=== PATIENT | female | born 1975 | race Caucasian/White ===

== ENCOUNTER 2017-10-20 10:07 | Emergency (ER) | payer BC ==
[2017-10-20 10:44] LABS: #Basophils 0.1 thou/uL (0.0-0.2); #Eosinphils 0.2 thou/uL (0.0-0.7); #Monocytes 0.9 thou/uL (0.11-0.59); #Neutrophils 4.8 thou/uL (1.40-6.50); %Basophils 0.6 % (0.0-1.0); %Eosinophils 2.7 % (0.0-10.0); %Lymphocytes 33.4 % (21.0-51.0); %Monocytes 9.9 % (0.0-10.0); Hematocrit 46.1 % (36.0-47.0); Mean Platelet Volume 7.2 fL (7.4-10.4); Red Blood Cell (RBC) Count 4.73 mill/uL (4.20-5.40)
--- NOTE | 2017-10-20 10:44 | RAD ---
PORTABLE CHEST ONE VIEW: Date: 10-20-17 Time: 10:23 a.m. History: Chest pain. FINDINGS: Comparison made with exam of 11-30-16. There is continued elevation of the right hemidiaphragm. The heart size is normal. No focal areas of consolidation, pneumothorax, or pleural effusions are seen. IMPRESSION: No acute process. POS: [facility]
[2017-10-20 10:50] LABS: ALT (SGPT) 19 U/L (8-55); AST (SGOT) 15 U/L (5-34); Alkaline Phosphatase 55 U/L (40-150); Anion Gap 12 mmol/L (10-20); BUN (Urea Nitrogen) 12 mg/dL (7.0-18.7); Bilirubin, Total 0.4 mg/dL (0.2-1.2); CK (CPK) 77 U/L (29-168); Calc. Creatinine Clearance 0 mL/min (70-130); Calcium 9.7 mg/dL (7.8-10.44); Carbon Dioxide 27 mmol/L (22-29); Chloride 103 mmol/L (98-107); Estimated GFR-MDRD Greater than 90; Lipase 34 U/L (8-78); Protein, Total 7.3 g/dL (6.0-8.3)
[2017-10-20 10:54] LABS: Troponin I Less than 0.010 ng/mL (< 0.028)
[2017-10-20 13:46] LABS: Troponin I Less than 0.010 ng/mL (< 0.028)
== END 2017-10-20 14:23 | disposition home or self-care (01) ==
LOC: ERS 10:07
DX: R07.89 Other chest pain (principal); F17.210 Nicotine dependence, cigarettes, uncomplicated; I10 Essential (primary) hypertension; Z87.442 Personal history of urinary calculi; Z79.899 Other long term (current) drug therapy
CPT/HCPCS: 36415; 71010; 80053; 82550; 82553; 83690; 84484; 85025; 93005; 94760

== ENCOUNTER 2018-06-28 08:28 | Outpatient (CLI) | payer OTHER | END 2018-06-28 08:29 | disposition home or self-care (01) | LOC: BICULT 08:28 | PROVIDERS: ATTEND Family Medicine | DX: R10.84 Generalized abdominal pain (principal); Z90.49 Acquired absence of other specified parts of digestive tract; Z90.5 Acquired absence of kidney | CPT/HCPCS: 76700 ==

== ENCOUNTER 2019-01-23 08:30 | Emergency (ER) | payer OTHER ==
[2019-01-23] MEDS ORDERED: Meclizine HCl 25 MG TAB ONE (08:50)
[2019-01-23] MEDS ORDERED: Metoclopramide HCl 10 MG/2 ML VIAL ONE (08:50)
[2019-01-23 09:09] LABS: #Basophils 0.2 thou/uL (0.0-0.2); #Eosinphils 0.2 thou/uL (0.0-0.7); #Lymphocytes 2.9 thou/uL (1.20-3.40); #Monocytes 0.7 thou/uL (0.11-0.59); #Neutrophils 5.4 thou/uL (1.40-6.50); %Basophils 1.6 % (0.0-1.0); %Eosinophils 1.8 % (0.0-10.0); %Lymphocytes 31.5 % (21.0-51.0); %Monocytes 7.3 % (0.0-10.0); %Neutrophils 57.8 % (42.0-75.0); Hemoglobin 15.1 g/dL (12.0-16.0); Mean Corpuscular HGB CONC 33.2 g/dL (32.0-36.0); Mean Corpuscular Hemoglobin 31.2 pg (27.0-31.0); Mean Corpuscular Volume 93.9 fL (78.0-98.0); Platelet Count 268 thou/uL (130-400); Red Blood Cell (RBC) Count 4.83 mill/uL (4.20-5.40); White Blood Cell (WBC) Count 9.4 thou/uL (4.8-10.8)
[2019-01-23 09:21] LABS: BHCG - Serum Negative (NEGATIVE); Pregs Control Background? CLEAR/WHITE (CLR/WHITE); Pregs Control Bar Appear? YES (CONTROL BAR)
[2019-01-23 09:23] LABS: ALT (SGPT) 19 U/L (8-55); AST (SGOT) 18 U/L (5-34); Albumin 4.2 g/dL (3.5-5.0); Alkaline Phosphatase 56 U/L (40-150); Anion Gap 13 mmol/L (10-20); BUN (Urea Nitrogen) 10 mg/dL (7.0-18.7); Bilirubin, Total 0.4 mg/dL (0.2-1.2); Calc. Creatinine Clearance 0 mL/min (70-130); Calcium 9.2 mg/dL (7.8-10.44); Carbon Dioxide 22 mmol/L (22-29); Chloride 108 mmol/L (98-107); Estimated GFR-MDRD Greater than 90; Globulin 2.9 g/dL (2.4-3.5); Glucose 96 mg/dL (70-105); Protein, Total 7.1 g/dL (6.0-8.3); Sodium 139 mmol/L (136-145)
--- NOTE | 2019-01-23 09:40 | CT ---
Head CT without contrast: 01/23/2019 COMPARISON: None HISTORY: Headache TECHNIQUE: Axial CT imaging at 4.8 mm intervals from vertex through skull base without contrast. FINDINGS: The visualized paranasal sinuses and mastoid air cells are well aerated. No displaced frederic rial fracture. No intracranial hemorrhage, midline shift, mass effect, or ventricular enlargement. IMPRESSION: No acute findings.
[2019-01-23] MEDS ORDERED: Ketorolac Tromethamine 30 MG/ML VIAL ONE (09:49)
== END 2019-01-23 10:43 | disposition home or self-care (01) ==
LOC: SCSER 08:30
DX: H81.391 Other peripheral vertigo, right ear (principal); I10 Essential (primary) hypertension; F17.210 Nicotine dependence, cigarettes, uncomplicated; Z79.899 Other long term (current) drug therapy
CPT/HCPCS: 70450; 80053; 84703; 85025; 93005; 96365; 96366; 96375; J1885; J2765

== ENCOUNTER 2019-01-26 10:17 | Outpatient (CLI) | payer OTHER ==
--- NOTE | 2019-01-26 13:11 | MRI ---
FCervical spine MRI without contrast: 01/26/2019 COMPARISON: 07/27/2017 HISTORY: Cervical radiculopathy TECHNIQUE: Multiplanar multisequence MR imaging of cervical spine obtained without contrast FINDINGS: Stable degenerative endplate changes are seen at the C5-6 level. There is no anterolisthesi s or retrolisthesis noted. The sagittal STIR imaging demonstrates no acute focal area of osseous roger ow edema. C2-3: Intervertebral disc height and signal intensity within normal limits with no significant centra l canal or neural foraminal stenosis. C3-4: Intervertebral disc height and signal intensity within normal limits with no central canal or n eural foraminal stenosis C4-5: Stable disc space narrowing, disc space narrowing, and disc bulge with mild effacement of the v entral thecal sac and mild central canal stenosis. Stable central annular tear. Mild right neural for aminal stenosis on the basis of uncovertebral osteophyte formation. C5-6: Degenerative endplate changes noted with disc desiccation and anterior osteophyte formation. Ef facement of the ventral thecal sac noted with mild stable central canal stenosis. Bilateral facet and uncovertebral osteophyte formation noted with mild right and moderate left neural foraminal stenosis . C6-7: No significant central canal or neural foraminal stenosis C7-T1: No significant central canal or neural foraminal stenosis. No focal area of abnormal signal intensity is identified within the cervical cord. IMPRESSION: No significant interval change in cervical spine degenerative disc disease as detailed ab ove.
== END 2019-01-26 10:18 | disposition home or self-care (01) ==
LOC: SCSMRI 10:17
PROVIDERS: ATTEND Specialist
DX: M54.12 Radiculopathy, cervical region (principal)
CPT/HCPCS: 72141

== ENCOUNTER 2019-02-21 11:37 | Outpatient (CLI) | payer OTHER ==
--- NOTE | 2019-02-22 07:28 | RAD ---
Left hip 2 views HISTORY: Left hip pain. FINDINGS: Mild joint space narrowing, osteophytosis, and subchondral sclerosis. Femoral head contours maintained. No acute fracture, dislocation, or aggressive osseous erosions. IMPRESSION: Osteoarthritic changes left hip are pronounced for the patient's age.
== END 2019-02-21 11:38 | disposition home or self-care (01) ==
LOC: RAD 11:37
PROVIDERS: ATTEND Nurse Practitioner Family
DX: M25.552 Pain in left hip (principal); M16.12 Unilateral primary osteoarthritis, left hip

== ENCOUNTER 2019-02-26 09:45 | Outpatient (CLI) | payer OTHER | END 2019-02-26 09:46 | disposition home or self-care (01) | LOC: CTENTCT 09:45 | PROVIDERS: ATTEND Otolaryngology Plastic Surgery within the Head & Neck | DX: J32.9 Chronic sinusitis, unspecified (principal) | CPT/HCPCS: 70486 ==

== ENCOUNTER 2019-03-03 18:41 | Emergency (ER) | payer OTHER ==
--- NOTE | 2019-03-03 19:23 | RAD ---
4 views left elbow: 03/03/2019 COMPARISON: None HISTORY: Joint pain, decreased range of motion FINDINGS: No fracture or dislocation. No elbow joint effusion. No radiopaque foreign body or subcutan eous gas. IMPRESSION: No acute findings.
== END 2019-03-03 20:00 | disposition home or self-care (01) ==
LOC: SCSER 18:41
DX: S50.02XA Contusion of left elbow, initial encounter (principal); L50.9 Urticaria, unspecified; I10 Essential (primary) hypertension; F17.210 Nicotine dependence, cigarettes, uncomplicated; Z87.442 Personal history of urinary calculi; Z71.6 Tobacco abuse counseling; W18.30XA Fall on same level, unspecified, initial encounter
CPT/HCPCS: 29125; 99406

== ENCOUNTER 2019-03-28 08:13 | Day surgery (SDC) | payer OTHER ==
[2019-03-27 09:33] VITALS: BMI 37.8
[2019-03-28] MEDS ORDERED: Oxymetazoline HCl 0.05% ( 15 ML ) ONE ×2 (08:48→10:33)
[2019-03-28] MEDS ORDERED: Ondansetron PF 4 MG/2 ML Vial ONE ×2 (09:16→13:03)
[2019-03-28] MEDS ORDERED: Scopolamine 1.5 mg/72 hour Patch ONE (09:16)
[2019-03-28] MEDS ORDERED: Bacitracin Zinc Ointment 30 gm TUBE ONE (10:32)
[2019-03-28] MEDS ORDERED: Lidocaine 1% w/Epinephrine 1:100K 20 ML VIAL ONE (10:32)
[2019-03-28] MEDS ORDERED: Midazolam HCl 2 mg/2 ml Vial ONE (10:37)
[2019-03-28] MEDS ORDERED: Fentanyl 100 MCG/2 ML VIAL ONE ×4 (10:37→12:10)
[2019-03-28] MEDS ORDERED: Labetalol HCl 100 MG/20 ML VIAL ONE ×2 (12:21→14:07)
[2019-03-28 12:33] LABS: Ref Lab Test Ordered ALLERGEN LOBSTER; Reference Lab Name LABCORP
[2019-03-28] MEDS ORDERED: Lidocaine 1% PF 5 ML VIAL ONE (13:03)
[2019-03-28] MEDS ORDERED: PROPOFOL 200 MG/20 ML VIAL ONE (13:03)
[2019-03-28] MEDS ORDERED: Succinylcholine Chloride 20 MG/ML 10 ml SYRINGE FS ONE (13:03)
[2019-03-28] MEDS ORDERED: Dexamethasone 20 MG/5 ML VIAL ONE (13:03)
[2019-03-28] MEDS ORDERED: hydrALAZINE 20 MG/ML VIAL ONE (13:29)
[2019-03-28] MEDS ORDERED: Morphine 2 MG/ML SYRINGE ONE ×2 (14:22→14:49)
[2019-03-28] MEDS ORDERED: Hydrocodone-Acetamin 15 ML UDCUP ONE (15:03)
--- NOTE | 2019-03-29 11:34 | OP ---
DATE OF PROCEDURE: 03/28/2019 PREOPERATIVE DIAGNOSES: 1. Chronic rhinosinusitis. 2. Nasoseptal deviation. 3. Bilateral inferior turbinate hypertrophy. 4. Chronic adenotonsillitis.. 5. Adenotonsillar hypertrophy. 6. Obstructive sleep apnea. POSTOPERATIVE DIAGNOSES: 1. Chronic rhinosinusitis. 2. Nasoseptal deviation. 3. Bilateral inferior turbinate hypertrophy. 4. Chronic adenotonsillitis.. 5. Adenotonsillar hypertrophy. 6. Obstructive sleep apnea. PROCEDURES PERFORMED: 1. Bilateral endoscopic sinus surgery, total ethmoidectomies. 2. Bilateral endoscopic sinus surgery, maxillary antrostomies. 3. Bilateral endoscopic sinus surgery, frontal sinusotomies. 4. Nasal septoplasty. 5. Bilateral inferior turbinate submucosal resection. 6. Tonsillectomy and adenoidectomy. ESTIMATED BLOOD LOSS: 50 mL. COMPLICATIONS: None. ANESTHESIA: GETA. DESCRIPTION OF PROCEDURE: After consent was obtained, the patient was identified, brought to the operating room, and placed on the operating table in the supine position. General endotracheal anesthesia and intravenous access were obtained and we proceeded with positioning the patient for oropharyngeal surgery. Oropharyngeal exposure was obtained with a Maryam-Bryson mouth gag after a head drape was placed and secured with a towel clip. The Maryam-Bryson mouth gag was then suspended from the Small tray and palatal elevation was achieved with a red rubber catheter. The right tonsil was addressed first. We used a curved Allis to grasp the tonsil and retract it medially as an anterior pillar incision was made. The retrotonsillar fascial plane was then established and blunt dissection was performed with the suction cautery. Blood vessels were anticipated, identified, and cauterized as they were encountered. Ultimately, dissection was carried to the posterior tonsillar pillar mucosa which was incised hemostatically, as well as the base of tongue connection. The tonsil was then passed off as a specimen and bleeding points within the tonsillar bed were cauterized under direct visualization. We subsequently turned our attention to the contralateral side, where using a similar technique, a near identical procedure was performed. Again, the tonsil was grasped and retracted medially with a curved Allis. The retrotonsillar fascial plane was established and while the anterior pillar was retracted medially. The hemostatic blunt dissection of the tonsil with a suction cautery was performed with blood vessels anticipated, identified, and cauterized as they were encountered. Again, dissection continued to the base of tongue and posterior tonsillar pillar mucosa which was incised in a hemostatic fashion. The tonsillar beds were then carefully inspected and bleeding points were identified and cauterized with a suction cautery. After this portion of the procedure, hemostasis was completely obtained. Under direct mirror visualization, we visualized the adenoid pad. Under direct mirror visualization, we removed the bulk of the adenoid tissue with the adenoid curette. We then packed the nasopharynx for an appropriate period of time with Iiu-[id number]-tzsursxcs tonsillar sponges. After a period of observation, we removed the pack. Under indirect mirror visualization, we obtained hemostasis and vaporization of residual adenoid tissue with electrocautery. The patient's oral cavity was copiously irrigated with iced saline and subsequently suctioned. After completion of the procedure, the nasal cavity and oropharynx were irrigated and suctioned as were the gastric contents. The patient was then awakened and transferred to the recovery room where the patient remained in stable condition prior to discharge to Day Stay. The patient was taken to the operating room and placed supine on the table. General endotracheal anesthesia was obtained by the anesthesia staff. Tube was secured in the left lower lip. Patient was then placed in the beach chair position, and Afrin pledgets were placed in the nasal cavity. Injections of 1% lidocaine with 1:100,000 epinephrine were made into the nasal septum as well as the inferior turbinates. Patient was then prepped and draped in standard surgical fashion for nasal surgery. Following this, the Afrin pledgets were removed. A Casa incision was made on the left nasal septum. Submucoperichondrial dissection was performed. The deviated portions of the septum included portions of the cartilage and the bony septum. These isolated areas were removed using 3 cutting rongeurs. There was noted to be a large dorsal and caudal strut, left intact for support of the nose. The mucoperichondrial flaps were then reapproximated using a 4-0 gut stitch. Any straight pieces of cartilage were crushed prior to this and placed between the mucoperichondrial flaps. Following this, the inferior turbinates were then punctured with a submucosal coblation wand, and submucosal coblations were performed of multiple areas of the inferior portion of the anterior inferior turbinate. A submucosal microdebrider was used to submucosally resect the anterior and inferior portions of the inferior turbinates bilaterally. Following this, the 0-degree endoscope was advanced in the middle meatus. The middle turbinates were gently medialized using a [place] elevator and the uncinate process was exposed. Following this, the uncinate process was then anteriorly fractured using a ball-ended probe and then was removed using the 0-degree microdebrider and the up-biting Blakesley forceps bilaterally. Following this, the maxillary sinus ostia was gently identified using the ball-ended probe and the maxillary sinus ostia was then widened using the 40-degree microdebrider blade and straight Blakesley forceps bilaterally. Following this, the ethmoidal bulla was identified and was punctured on its medial and inferior aspect with microdebrider and was removed using the microdebrider and the up-biting Blakesley forceps. Following this, the grand lamella was identified and was punctured into the posterior ethmoidal cells. Working from posterior to anterior, the ethmoidal cells were opened using the 0-degree microdebrider and up-biting Blakesley forceps. Following this, a 45-degree endoscope and the 40-degree microdebrider were used to further open the anterior ethmoidal cells as well as open and expose the frontal sinus ostia bilaterally. Following this, the nasal cavity was irrigated. Mirapex was placed within the middle meatus. Alfaro splints were placed and secured. The patient tolerated the procedure well. Job ID: [id number]
[2019-03-30 17:30] LABS: Allergen,Alternaria altern.IgE Less than 0.10 kU/L (Less than 0.10); Allergen,Ash white IgE Less than 0.10 kU/L (Less than 0.10); Allergen,Aspergillus fumig.IgE Less than 0.10 kU/L (Less than 0.10); Allergen,Bermuda grass IgE Less than 0.10 kU/L (Less than 0.10); Allergen,Cat dander IgE Less than 0.10 kU/L (Less than 0.10); Allergen,Cedar mountain IgE Less than 0.10 kU/L (Less than 0.10); Allergen,Chocolate/Cacao IgE Less than 0.10 kU/L (Less than 0.10); Allergen,Cladosporium herb.IgE Less than 0.10 kU/L (Less than 0.10); Allergen,Corn IgE Less than 0.10 kU/L (Less than 0.10); Allergen,Cottonwood Tree IgE Less than 0.10 kU/L (Less than 0.10); Allergen,Crab IgE Less than 0.10 kU/L (Less than 0.10); Allergen,Curvularia lunata IgE Less than 0.10 kU/L (Less than 0.10); Allergen,D. pteronyssinus IgE Less than 0.10 kU/L (Less than 0.10); Allergen,Dog dander IgE Less than 0.10 kU/L (Less than 0.10); Allergen,Egg white IgE Less than 0.10 kU/L (Less than 0.10); Allergen,Egg yolk IgE Less than 0.10 kU/L (Less than 0.10); Allergen,Elm AmericanWhite IgE Less than 0.10 kU/L (Less than 0.10); Allergen,Johnson grass IgE Less than 0.10 kU/L (Less than 0.10); Allergen,Lamb's qrters Gooseft Less than 0.10 kU/L (Less than 0.10); Allergen,Mesquite IgE Less than 0.10 kU/L (Less than 0.10); Allergen,Milk IgE Less than 0.10 kU/L (Less than 0.10); Allergen,Oat IgE Less than 0.10 kU/L (Less than 0.10); Allergen,Peanut IgE Less than 0.10 kU/L (Less than 0.10); Allergen,Pecan nut IgE Less than 0.10 kU/L (Less than 0.10); Allergen,Pecan/Hickory IgE Less than 0.10 kU/L (Less than 0.10); Allergen,Plantain English IgE Less than 0.10 kU/L (Less than 0.10); Allergen,Ragweed giant IgE Less than 0.10 kU/L (Less than 0.10); Allergen,Rice IgE Less than 0.10 kU/L (Less than 0.10); Allergen,Saltwort RussianThist Less than 0.10 kU/L (Less than 0.10); Allergen,Shrimp IgE Less than 0.10 kU/L (Less than 0.10); Allergen,Soybean IgE Less than 0.10 kU/L (Less than 0.10); Allergen,Sycamore Maple Lf IgE Less than 0.10 kU/L (Less than 0.10); Allergen,Timothy grass IgE Less than 0.10 kU/L (Less than 0.10); Allergen,Wheat IgE Less than 0.10 kU/L (Less than 0.10); Allergen,Wormwood IgE Less than 0.10 kU/L (Less than 0.10)
== END 2019-03-28 16:00 | disposition home or self-care (01) ==
LOC: SDC 08:13
PROVIDERS: ATTEND Otolaryngology Plastic Surgery within the Head & Neck
PROC: 09TL8ZZ Resection of Nasal Turbinate, Via Natural or Artificial Opening Endoscopic (ICD-10-PCS; principal; 2019-03-28)
PROC: 0CTQXZZ Resection of Adenoids, External Approach (ICD-10-PCS; principal; 2019-03-28)
PROC: 099R8ZZ Drainage of Left Maxillary Sinus, Via Natural or Artificial Opening Endoscopic (ICD-10-PCS; principal; 2019-03-28)
PROC: 09BM8ZZ Excision of Nasal Septum, Via Natural or Artificial Opening Endoscopic (ICD-10-PCS; principal; 2019-03-28)
PROC: 099Q8ZZ Drainage of Right Maxillary Sinus, Via Natural or Artificial Opening Endoscopic (ICD-10-PCS; principal; 2019-03-28)
PROC: 0CTPXZZ Resection of Tonsils, External Approach (ICD-10-PCS; principal; 2019-03-28)
DX: J35.03 Chronic tonsillitis and adenoiditis (principal); G47.33 Obstructive sleep apnea (adult) (pediatric); J32.9 Chronic sinusitis, unspecified; J34.2 Deviated nasal septum; J34.3 Hypertrophy of nasal turbinates; H92.02 Otalgia, left ear; F17.210 Nicotine dependence, cigarettes, uncomplicated; K21.9 Gastro-esophageal reflux disease without esophagitis; Z79.51 Long term (current) use of inhaled steroids
CPT/HCPCS: 36415; 85014; 88304; J0360; J1100; J2001; J2250; J2270; J2405; J2704; J3010

== ENCOUNTER 2019-03-31 17:17 | Emergency (ER) | payer OTHER ==
[2019-03-31] MEDS ORDERED: Morphine 4 MG/ML VIAL ONE (17:53)
[2019-03-31] MEDS ORDERED: Ondansetron ODT 4 MG TAB ONE (17:53)
[2019-03-31] MEDS ORDERED: Dexamethasone 4 mg/ml Vial ONE (18:17)
== END 2019-03-31 19:00 | disposition home or self-care (01) ==
LOC: ERS 17:17
DX: G89.18 Other acute postprocedural pain (principal); R51 Headache; F17.210 Nicotine dependence, cigarettes, uncomplicated; I10 Essential (primary) hypertension
CPT/HCPCS: 96372; J1100; J2270; Q0162

== ENCOUNTER 2019-04-04 05:23 | Emergency (ER) | payer OTHER ==
[2019-04-04] MEDS ORDERED: Ondansetron PF 4 MG/2 ML Vial ONE (06:00)
[2019-04-04] MEDS ORDERED: Morphine 4 MG/ML VIAL ONE (06:00)
[2019-04-04 06:18] LABS: #Basophils 0.1 thou/uL (0.0-0.2); #Eosinphils 0.2 thou/uL (0.0-0.7); #Lymphocytes 3.1 thou/uL (1.20-3.40); #Monocytes 1.9 thou/uL (0.11-0.59); #Neutrophils 9.7 thou/uL (1.40-6.50); %Basophils 0.5 % (0.0-1.0); %Eosinophils 1.6 % (0.0-10.0); %Lymphocytes 20.8 % (21.0-51.0); %Monocytes 12.6 % (0.0-10.0); %Neutrophils 64.5 % (42.0-75.0); Hemoglobin 15.4 g/dL (12.0-16.0); Mean Corpuscular HGB CONC 33.2 g/dL (32.0-36.0); Mean Corpuscular Hemoglobin 32.1 pg (27.0-31.0); Mean Corpuscular Volume 96.7 fL (78.0-98.0); Mean Platelet Volume 7.3 fL (7.4-10.4); Platelet Count 284 thou/uL (130-400); RBC Distribution Width 11.3 % (11.5-14.5); Red Blood Cell (RBC) Count 4.79 mill/uL (4.20-5.40)
[2019-04-04] MEDS ORDERED: Lidocaine 2% PF 5 ML VIAL ONE (06:19)
[2019-04-04 06:38] LABS: ALT (SGPT) 10 U/L (8-55); AST (SGOT) 9 U/L (5-34); Albumin 4.2 g/dL (3.5-5.0); Alkaline Phosphatase 68 U/L (40-150); Anion Gap 12 mmol/L (10-20); BUN (Urea Nitrogen) 11 mg/dL (7.0-18.7); Bilirubin, Total 0.8 mg/dL (0.2-1.2); Calc. Creatinine Clearance 0 mL/min (70-130); Calcium 9.8 mg/dL (7.8-10.44); Carbon Dioxide 29 mmol/L (22-29); Chloride 101 mmol/L (98-107); Estimated GFR-MDRD 86; Globulin 2.9 g/dL (2.4-3.5); Glucose 104 mg/dL (70-105); Potassium 3.8 mmol/L (3.5-5.1); Protein, Total 7.1 g/dL (6.0-8.3); Sodium 138 mmol/L (136-145)
[2019-04-04] MEDS ORDERED: Dexamethasone 10 MG/ML VIAL ONE (07:25)
== END 2019-04-04 07:42 | disposition home or self-care (01) ==
LOC: ERS 05:23
DX: G89.18 Other acute postprocedural pain (principal); R07.0 Pain in throat; F17.210 Nicotine dependence, cigarettes, uncomplicated
CPT/HCPCS: 80053; 85025; 96361; 96372; 96374; 96375; J1100; J2001; J2270; J2405

== ENCOUNTER 2019-11-29 19:00 | Outpatient (CLI) | payer OTHER | END 2019-11-29 19:01 | disposition home or self-care (01) | LOC: SLEEPLAB 19:00 | PROVIDERS: ATTEND Otolaryngology Plastic Surgery within the Head & Neck | DX: G47.33 Obstructive sleep apnea (adult) (pediatric) (principal); R51 Headache; E66.9 Obesity, unspecified; Z68.39 Body mass index [BMI] 39.0-39.9, adult | CPT/HCPCS: 95806 ==

== ENCOUNTER 2019-12-31 10:35 | Outpatient (CLI) | payer OTHER ==
--- NOTE | 2019-12-31 11:36 | MMO ---
Bilateral MAMMO Bilat Diag [facility]UREN. CLINICAL HISTORY: Patient is 44 years old and is seen for follow-up at short-interval from prior study. The patient has the following family history of breast cancer: mother, malignant (generic), CERVIAL and maternal aunt. The patient has a history of kidney cancer in September,. VIEWS: The views performed were: bilateral craniocaudal with tomosynthesis; bilateral mediolateral oblique with tomosynthesis; bilateral mediolateral with tomosynthesis; left craniocaudal spot compression magnification; and left mediolateral spot compression magnification. FILMS COMPARED: The present examination has been compared to prior imaging studies performed at [facility] on 06/23/2016, 06/25/2016, 12/28/2016 and 07/13/2017. This study has been interpreted with the assistance of computer-aided detection. MAMMOGRAM FINDINGS: There are scattered fibroglandular densities. There is a new cluster of calcs in the left upper outer anterior breast. In the right breast, there are no suspicious masses, calcifications or areas of architectural distortion. IMPRESSION: FINDING IN THE LEFT BREAST IS SUSPICIOUS. A STEREOTACTIC BREAST BIOPSY IS RECOMMENDED. THE RESULTS OF THIS EXAM WERE SENT TO THE PATIENT. ACR BI-RADS Category 4 - Suspicious abnormality - biopsy should be considered D/W pt in person @ 11:30 AM MAMMOGRAPHY NOTE: 1. A negative mammogram report should not delay a biopsy if a dominant of clinically suspicious mass is present. 2. Approximately 10% to 15% of breast cancers are not detected by mammography. 3. Adenosis and dense breasts may obscure an underlying neoplasm. Reported by: MASON GONZÁLES MD Electonically Signed: [id number]
== END 2019-12-31 10:36 | disposition home or self-care (01) ==
LOC: BICMAMMO 10:35
PROVIDERS: ATTEND Family Medicine
DX: R92.8 Other abnormal and inconclusive findings on diagnostic imaging of breast (principal); Z85.3 Personal history of malignant neoplasm of breast; Z85.528 Personal history of other malignant neoplasm of kidney
CPT/HCPCS: 77066; G0279

== ENCOUNTER → 2020-01-07 | Day surgery (SDC) | payer OTHER ==
--- NOTE | 2020-01-07 09:48 | MMO ---
Stereotactic guided biopsy left breast microcalcifications Surgical specimen mammography Left diagnostic mammogram post biopsy HISTORY: Abnormal mammogram. Microcalcifications left breast FINDINGS: After explain the procedure and answering all questions, the cluster microcalcifications of the superior aspect of left breast was visualized. Sterile technique, buffered local anesthesia, stereotactic guidance, and a superior approach were used to carefully advance a 10-gauge vacuum-debra romina needle into the cluster of microcalcifications. Position confirmed. A total of 6 10-gauge needle specimens were obtained and eventually submitted to pathology for evalua tion. Surgical specimen mammography shows microcalcifications in the tissue. Localization clip was placed in the biopsy bed under stereotactic control. Needle was removed and hem ostasis obtained with direct pressure. Patient tolerated the procedure well and was eventually dismissed in good condition. Postprocedure left mammogram shows localization clip in the biopsy bed. A few microcalcifications rem ain. IMPRESSION: Technically successful stereotactic guided biopsy left breast microcalcifications. Pathol ogy is pending.
== END ==
LOC: MAMMO 07:47
PROVIDERS: ATTEND Family Medicine
PROC: 0H9U3ZX Drainage of Left Breast, Percutaneous Approach, Diagnostic (ICD-10-PCS; principal; 2020-01-07)
DX: N60.92 Unspecified benign mammary dysplasia of left breast (principal); Z88.0 Allergy status to penicillin; Z88.2 Allergy status to sulfonamides; Z91.041 Radiographic dye allergy status
CPT/HCPCS: 19081; 76098; 88305

== ENCOUNTER 2020-06-04 09:58 | Outpatient (CLI) | payer OTHER ==
--- NOTE | 2020-06-04 11:08 | MRI ---
MRI cervical spine noncontrast: 06/04/2020 HISTORY: M 54.12 week uropathy in 44-year-old female. COMPARISON: 01/26/2019 FINDINGS: Cervical spinal cord is normal in size and signal. Vertebral body heights are maintained. Moderate disc space narrowing at C5-6. Modic type II fibrofatty changes of bone marrow at C5-6. This involves almost the entire volume of the C5 vertebral body, unchanged. No bone marrow edema. Mild disc space narrowing at C4-5 and C6-7. Kyphosis, reversal of curvature. No major spondylolisthesis. No high-grade facet DJD at any level. C1-2: No high-grade central stenosis. C2-3: Normal. C3-4: Essentially normal. C4-5: Right lateral and far lateral uncinate process osteophytes versus disc herniation, causing a ne w finding of severe right neural foraminal stenosis, impinging on the exiting right C5 nerve root. Mild left neural foraminal stenosis. Shallow broad-based disc protrusion or disc-osteophyte complex. Mild central spinal canal stenosis. C6-C7: New focal small central and bilateral paracentral disc herniation, with mild superior migratio n of extruded disc material reaching foraminal level of C6. Bilateral small uncinate process osteophytes cause moderate bilateral neural foraminal stenosis, similar to prior MRI. Overall moderat e degree of central spinal canal stenosis. C7-T1: Normal. IMPRESSION: 1.) New finding of severe right neural foraminal stenosis at C4-5, possibly by a far lateral disc her niation superimposed on uncinate process osteophytes, impinging on the right C5 nerve root. 2) new small central disc extrusion at C6-7. 3) moderate bilateral neural foraminal stenosis at C6-7, unchanged. 4) overall degree of cervical spondylosis is predominantly mild.
--- NOTE | 2020-06-04 11:15 | MRI ---
MRI LUMBAR SPINE NONCONTRAST: DATE: 06/04/2020 HISTORY: 44-year-old female in 54.17 lumbosacral radiculopathy. Low back pain radiating to bilateral lower ext remities. COMPARISON: 03/31/2016 FINDINGS: Vertebral body heights are maintained. Alignment is normal. No disc space narrowing at any level. Con us medullaris terminates at lower L2. No bone marrow edema. No scoliosis. Minimal or mild facet bilateral DJD at several levels. No central spinal canal stenosis at any level. Mild bilateral neural foraminal stenosis at L3-4. Mild to moderate bilateral neural foraminal stenosis at L4-5 and L5-S1. Cauda equina is arranged in a symmetrical, normal distribution throughout the thecal sac. No m ajor pathology of perivertebral spaces. No interval change overall. Hemangioma of bone (venous malformations of bone) at L1. No yousif nerve root impingement at any level. IMPRESSION: 1) low-grade bilateral neural foraminal stenosis at lower levels. 2) otherwise normal
== END 2020-06-04 09:59 | disposition home or self-care (01) ==
LOC: BICMRI 09:58
PROVIDERS: ATTEND Specialist
DX: M54.17 Radiculopathy, lumbosacral region (principal); M47.22 Other spondylosis with radiculopathy, cervical region; M50.123 Cervical disc disorder at C6-C7 level with radiculopathy; M48.061 Spinal stenosis, lumbar region without neurogenic claudication; M48.07 Spinal stenosis, lumbosacral region; M48.02 Spinal stenosis, cervical region
CPT/HCPCS: 72141; 72148

== ENCOUNTER 2021-01-27 08:38 | Outpatient (CLI) | payer OTHER | END 2021-01-27 08:39 | disposition home or self-care (01) | LOC: BICMAMMO 08:38 | PROVIDERS: ATTEND Surgery | DX: N62 Hypertrophy of breast (principal) | CPT/HCPCS: 77066; G0279 ==

== ENCOUNTER 2021-02-26 09:54 | Outpatient (CLI) | payer OTHER ==
[2021-02-26 12:44] LABS: #Basophils 0.1 10x3/uL (0.0-0.2); #Eosinphils 0.2 10x3/uL (0.0-0.5); #Monocytes 0.6 10x3/uL (0.0-1.1); #Neutrophils 3.7 10x3/uL (1.5-8.4); %Basophils 1.3 % (0.0-2.0); %Neutrophils 48.4 % (40.0-75.0); Hemoglobin 14.4 g/dL (12.0-15.5); Mean Corpuscular HGB CONC 34.1 g/dL (32.0-36.0); Mean Corpuscular Hemoglobin 31.1 pg (27.0-33.0); Mean Corpuscular Volume 91.1 fl (81.6-98.3); Mean Platelet Volume 10.1 fl (7.4-10.4); Platelet Count 271 10x3/uL (150-450); RBC Distribution Width 11.8 % (11.5-14.5); Red Blood Cell (RBC) Count 4.63 10x6/uL (3.90-5.03); White Blood Cell (WBC) Count 7.7 10x3/uL (3.5-10.5)
[2021-02-26 15:28] LABS: ALT (SGPT) 33 U/L (8-55); AST (SGOT) 23 U/L (5-34); Albumin 4.3 g/dL (3.5-5.0); Alkaline Phosphatase 54 U/L (40-110); Anion Gap 17 mmol/L (10-20); BUN (Urea Nitrogen) 12 mg/dL (7.0-18.7); Bilirubin, Total 0.6 mg/dL (0.2-1.2); Calc. Creatinine Clearance 0 mL/min (70-130); Calcium 9.3 mg/dL (7.8-10.44); Carbon Dioxide 23 mmol/L (22-29); Chloride 104 mmol/L (98-107); Globulin 2.5 g/dL (2.4-3.5); Glucose 85 mg/dL (70-105); Protein, Total 6.8 g/dL (6.0-8.3); Sodium 140 mmol/L (136-145)
[2021-02-27 01:47] LABS: SARS-CoV-2 PCR by NAA Not Detected (NotDetected)
== END 2021-02-26 09:55 | disposition home or self-care (01) ==
LOC: LABBT 09:54
PROVIDERS: ATTEND Surgery
DX: Z01.812 Encounter for preprocedural laboratory examination (principal); Z20.822 Contact with and (suspected) exposure to COVID-19; N60.92 Unspecified benign mammary dysplasia of left breast
CPT/HCPCS: 80053; 85025; 87635; U0003; U0005

== ENCOUNTER 2021-03-03 07:01 | Day surgery (SDC) | payer OTHER ==
[2021-03-02 10:09] VITALS: BMI 39.8
[2021-03-03] MEDS ORDERED: Scopolamine 1.5 mg/72 hour Patch ONE (09:54)
[2021-03-03] MEDS ORDERED: Bupivacaine PF 0.5% 30 ML VIAL ONE (11:39)
[2021-03-03] MEDS ORDERED: Lidocaine 1% w/Epinephrine 1:100K 20 ML VIAL ONE (11:39)
[2021-03-03] MEDS ORDERED: Dexmedetomidine 200 MCG/2 ML VIAL ONE (11:41)
[2021-03-03] MEDS ORDERED: Propofol 500 MG/50 ML VIAL ONE ×2 (11:41→12:01)
[2021-03-03] MEDS ORDERED: Fentanyl 100 MCG/2 ML VIAL ONE (11:41)
[2021-03-03] MEDS ORDERED: Levofloxacin 500 mg/D5W 100 ml Premix Bag ONE (12:01)
[2021-03-03] MEDS ORDERED: Dexamethasone 20 MG/5 ML VIAL ONE (12:15)
[2021-03-03] MEDS ORDERED: ePHEDrine Sulfate 50 MG/10 ML VIAL ONE (12:15)
[2021-03-03] MEDS ORDERED: PROPOFOL 200 MG/20 ML VIAL ONE (12:15)
[2021-03-03] MEDS ORDERED: Lidocaine 1% PF 5 ML VIAL ONE (12:15)
[2021-03-03] MEDS ORDERED: Ondansetron PF 4 MG/2 ML Vial ONE (12:15)
[2021-03-03] MEDS ORDERED: diphenhydrAMINE 50 MG/ML VIAL ONE (12:15)
== END 2021-03-03 15:31 | disposition home or self-care (01) ==
LOC: SDC 07:01
PROVIDERS: ATTEND Surgery
PROC: 0HBU0ZZ Excision of Left Breast, Open Approach (ICD-10-PCS; principal; 2021-03-03)
DX: N60.92 Unspecified benign mammary dysplasia of left breast (principal); K21.9 Gastro-esophageal reflux disease without esophagitis; F17.210 Nicotine dependence, cigarettes, uncomplicated; Z79.899 Other long term (current) drug therapy; Z88.0 Allergy status to penicillin; Z88.2 Allergy status to sulfonamides; Z91.013 Allergy to seafood; Z91.041 Radiographic dye allergy status
CPT/HCPCS: 19281; 76098; 88307; J0690; J1100; J1200; J1956; J2405; J2704; J3010; S0020

== ENCOUNTER 2021-05-05 08:28 | Outpatient (CLI) | payer OTHER | END 2021-05-05 08:29 | disposition home or self-care (01) | LOC: BICMAMMO 08:28 | PROVIDERS: ATTEND Surgery | DX: N60.92 Unspecified benign mammary dysplasia of left breast (principal) | CPT/HCPCS: G0279 ==

== ENCOUNTER 2022-10-13 05:38 | Day surgery (SDC) | payer OTHER ==
[2022-10-12 08:39] VITALS: BMI 37.8
[2022-10-13] MEDS ORDERED: Thrombin 5000 UNITS/5 ML VIAL ONE (06:10)
[2022-10-13] MEDS ORDERED: HYDROmorphone 0.5 MG/0.5 ML SYRINGE ONE (06:20)
[2022-10-13] MEDS ORDERED: fentaNYL PF 100 MCG/2 ML SYRINGE ONE (06:20)
[2022-10-13] MEDS ORDERED: Scopolamine 1.5 mg/72 hour Patch ONE (06:50)
[2022-10-13] MEDS ORDERED: Clindamycin/D5W 900 mg/50 ml Premix Bag ONE (06:53)
[2022-10-13] MEDS ORDERED: Levofloxacin 500 mg/D5W 100 ml Premix Bag ONE (06:53)
[2022-10-13] MEDS ORDERED: SUGAMMADEX SODIUM 200 MG/2 ML VIAL ONE (06:56)
[2022-10-13] MEDS ORDERED: Pantoprazole 40 MG VIAL ONE (06:56)
[2022-10-13] MEDS ORDERED: MINERAL OIL/WHITE PETROLATUM 3.5 GM TUBE ONE (06:56)
[2022-10-13] MEDS ORDERED: Famotidine/PF 20 mg/2ml Vial ONE (06:57)
[2022-10-13] MEDS ORDERED: Ondansetron PF 4 MG/2 ML Vial ONE (07:06)
[2022-10-13] MEDS ORDERED: Rocuronium Bromide 10 MG/ML (10ML VIAL) ONE (07:06)
[2022-10-13] MEDS ORDERED: ePHEDrine 50 MG/ML VIAL ONE (07:06)
[2022-10-13] MEDS ORDERED: Dexamethasone 20 MG/5 ML VIAL ONE (07:06)
[2022-10-13] MEDS ORDERED: PROPOFOL 200 MG/20 ML VIAL ONE (07:06)
[2022-10-13] MEDS ORDERED: Metoclopramide HCl 10 MG/2 ML VIAL ONE (07:06)
[2022-10-13] MEDS ORDERED: Phenylephrine 10 MG/ML VIAL ONE (07:06)
[2022-10-13 07:09] LABS: #Basophils 0.1 thou/uL (0.0-0.2); #Eosinphils 0.2 thou/uL (0.0-0.7); #Lymphocytes 3.3 thou/uL (1.20-3.40); #Monocytes 0.9 thou/uL (0.11-0.59); #Neutrophils 4.6 thou/uL (1.40-6.50); %Basophils 0.7 % (0.0-1.0); %Eosinophils 2.5 % (0.0-10.0); %Lymphocytes 36.1 % (21.0-51.0); %Monocytes 10.3 % (0.0-10.0); %Neutrophils 50.4 % (42.0-75.0); Hemoglobin 13.6 g/dL (12.0-16.0); Mean Corpuscular HGB CONC 33.6 g/dL (32.0-36.0); Mean Corpuscular Hemoglobin 33.2 pg (27.0-31.0); Mean Corpuscular Volume 98.9 fl (78.0-98.0); Mean Platelet Volume 7.4 fL (7.4-10.4); Platelet Count 233 10x3/uL (130-400); RBC Distribution Width 11.8 % (11.5-14.5); White Blood Cell (WBC) Count 9.1 10x3/uL (4.8-10.8)
[2022-10-13 07:22] LABS: Anion Gap 12 mmol/L (10-20); BUN (Urea Nitrogen) 13 mg/dL (7.0-18.7); Calc. Creatinine Clearance 181 mL/min (70-130); Calcium 8.7 mg/dL (7.8-10.44); Carbon Dioxide 26 mmol/L (22-29); Chloride 107 mmol/L (98-107); Estimated GFR 112; Glucose 93 mg/dL (70-105); Potassium 3.7 mmol/L (3.5-5.1); Sodium 141 mmol/L (136-145)
[2022-10-13] MEDS ORDERED: Ondansetron HCl/PF 4 MG/2 ML Vial IVP PRN (08:37)
[2022-10-13] MEDS ORDERED: Promethazine HCl 25 MG/ML VIAL IM PRN (08:37)
[2022-10-13] MEDS ORDERED: Promethazine HCl 25 MG/ML VIAL IVPB PRN (08:37)
[2022-10-13] MEDS ORDERED: PACU-Morphine 4MG/ML VIAL SLOW IVP PRN (08:37)
[2022-10-13] MEDS ORDERED: Tamsulosin HCl 0.4 MG CAP ONE (08:44)
[2022-10-13] MEDS ORDERED: HYDROcodone/Acetaminophen 5/325 mg Tablet ONE (10:56)
== END 2022-10-13 11:17 | disposition home or self-care (01) ==
LOC: SDC 05:38
PROVIDERS: ATTEND Neurological Surgery
PROC: 0RG10A0 Fusion of Cervical Vertebral Joint with Interbody Fusion Device, Anterior Approach, Anterior Column, Open Approach (ICD-10-PCS; principal; 2022-10-13)
DX: M54.12 Radiculopathy, cervical region (principal); M48.02 Spinal stenosis, cervical region; G89.4 Chronic pain syndrome; M19.90 Unspecified osteoarthritis, unspecified site; I10 Essential (primary) hypertension; Z87.891 Personal history of nicotine dependence; Z79.899 Other long term (current) drug therapy; Z88.0 Allergy status to penicillin; Z88.2 Allergy status to sulfonamides; Z91.041 Radiographic dye allergy status; Z98.1 Arthrodesis status
CPT/HCPCS: 36415; 80048; 85025; 93005; 93010; C1713; C1889; C9113; J1170; J1956; J3490; S0028

== ENCOUNTER 2023-03-01 08:41 | Outpatient (CLI) | payer OTHER | END 2023-03-01 08:42 | disposition home or self-care (01) | LOC: BICMAMMO 08:41 | PROVIDERS: ATTEND Family Medicine | DX: N64.4 Mastodynia (principal) | CPT/HCPCS: 77066; G0279 ==

== ENCOUNTER 2024-05-11 08:27 | Outpatient (CLI) | payer OTHER ==
[2024-05-11] MEDS ORDERED: Magnevist 469MG/ML 20 ML VIAL ONE (12:12)
== END 2024-05-11 08:28 | disposition home or self-care (01) ==
LOC: MRI 08:27
PROVIDERS: ATTEND Neurological Surgery
DX: M54.16 Radiculopathy, lumbar region (principal); M54.12 Radiculopathy, cervical region; Z98.1 Arthrodesis status
CPT/HCPCS: 72040; 72148; 72156; A9579